=== PATIENT | female | born 1985 | race Caucasian/White ===

== ENCOUNTER 2018-11-24 12:00 | Outpatient (RCR) | payer OTHER, SELFPAY ==
--- NOTE | 2018-11-02 14:11 | HP.PTEVAL ---
Patient's Visit Information ABRIL CAM is a 33 year old F referred to Physical Therapy by DOMINIC Mcneal with a diagnosis of HNP. Date of Evaluation: 11/02/18 Physical Therapist: Skinny Saenz, PT, ATC - Visit Plan Frequency: 2x /Week Duration: 3 Weeks Plan: Postural edu, REIL, core stab ex's, and HEP - Subjective Findings: Pt reports she has had intermittent LBP since 2017. Pt reports she has had PT in the past and an MRI which revealed HNP. Pt reports she is mostly just very frustrated because the pain keeps coming back. Pt reports she has seen another surgeon which recommended another MRI, but notes she has to have PT again before she can have it done. Pt reports her pain is located in the center of her LB, and notes when her pain really flares up, she will get pain into her L hip region. Pt reports bending forward, lifting objects, and prolonged sitting all increase her pain. Pt reports rest is the only thing that helps. 2/10 at rest, 6/10 at worst (Pt was ill and coughing a lot) - Pain LBP Pain Intensity (Out of 10): 2 Pain Intensity Range: 6 - Objective Neuro: B LE sensation is WNL to light touch. B patellar reflex= 3/3. MMT: B LE are 5/5 throughout. L/S ROM: Pt is moderately limited with flex and ext. Repeated movements: REIL 10x2 decreased LBP - Goals Goal 1:: Decrease LBP x 50% to aid with sleep Goal Time Frame: 2-4 Weeks Goal 2:: Increase L/S ROM x 1 grade to aid with IADL's Goal Time Frame: 2-4 Weeks Goal 3:: Decrease the frequency and intensity of L LE radiculopathy x 50% to aid with ambulation Goal Time Frame: 2-4 Weeks Goal 4:: I with HEP Goal Time Frame: 2-4 Weeks - Rehabilitation Potential Physical Therapy Diagnosis: Pt has LBP, limited L/S ROM, and L LE radiculopathy secondary to HNP Rehabilitation Potential: Good - Anticipated Interventions Patient/Client Instruction: Educate patient on: Condition, Plan of Care For the Purpose of:: To improve self management Therapeutic Exercise to Include: Strength training, Endurance training, Body mechanics, Postural training, Dynamic Lumbar Stabilization, Griselda Exercises For the Purpose of:: To decrease pain, To increase ROM, To improve muscle performance and motor function Thank you for the opportunity to evaluate your patient. For Medicare and Medicare HMO plans, please review the plan of care and approve it. It will need to be FAXED BACK to us at [phone] for Medicare purposes. For Medicare only, by signing this I certify the plan of care. Please let me know if there are questions or concerns regarding this plan of care. Physician Signature: Date:
--- NOTE | 2019-03-23 12:08 | HP.PT.NRP ---
HP - Discharge Summary (1) - Patient Information ABRIL CAM was seen in my office for initial evaluation on 11/02/18. The following Plan of Care was established for this patient: Initial Frequency: 2x /Week Initial Duration: 3 Weeks - Anticipated Interventions Patient/Client Instruction: Educate patient on: Condition, Plan of Care For the Purpose of:: To improve self management Therapeutic Exercise to Include: Strength training, Endurance training, Body mechanics, Postural training, Dynamic Lumbar Stabilization, Griselda Exercises For the Purpose of:: To decrease pain, To increase ROM, To improve muscle performance and motor function This patient was last seen in our office . Pertinent comments regarding their Physical therapy will appear below: Pt was treated for 6 PT visits for her LBP through the date of 11/24/18. Pt has not returned through todays date and is discontinued at this time. At this point I will be discontinuing this patient from physical therapy. I would be happy to see this patient again in the future if found appropriate by the physician. Thank you! Skinny Saenz, PT, ATC
== END 2018-11-24 19:00 | disposition home or self-care (01) ==
LOC: PT 12:00
PROVIDERS: Family Provider Nurse Practitioner; PCP Nurse Practitioner; Referring Provider Nurse Practitioner; Visit Provider Nurse Practitioner
DX: M51.26 Other intervertebral disc displacement, lumbar region (principal)
CPT/HCPCS: 97110; 97161

== ENCOUNTER → 2018-12-09 13:15 | Outpatient (CLI) | payer OTHER, SELFPAY ==
--- NOTE | 2018-12-09 13:45 | MRI_ITS ---
STUDY: MRI LUMBAR SPINE WITHOUT CONTRAST REASON FOR EXAM: Female, 33 years old. The low back pain for 3 years, herniated disc TECHNIQUE: Standardized fat and water weighted pulse sequences were obtained in the sagittal and axial planes. COMPARISON: 05/18/2017 FINDINGS: T12-L1: Normal endplates. Normal disc height, hydration and morphology. Normal bilateral facet joints. Normal central canal and bilateral lateral recesses. Normal bilateral intervertebral neural foramina. Normal lumbar lordosis. There is no substantial scoliosis. Normal conus medullaris that terminates at the L1-2 level. L1-2: Normal endplates. Normal disc height, hydration and morphology. Normal bilateral facet joints. Normal central canal and bilateral lateral recesses. Normal bilateral intervertebral neural foramina. L2-3: Normal endplates. Normal disc height, hydration and morphology. Normal bilateral facet joints. Normal central canal and bilateral lateral recesses. Normal bilateral intervertebral neural foramina. L3-4: Normal endplates. Normal disc height, hydration and morphology. Normal bilateral facet joints. Normal central canal and bilateral lateral recesses. Normal bilateral intervertebral neural foramina. L4-5: Disc desiccation. Bulging annulus with central annular fissure. No significant compressive sequelae. L5-S1: Disc space narrowing and desiccation with discogenic endplate changes. Mild residual or recurrent central disc protrusion with mild central canal stenosis. Mild bilateral foraminal stenoses. Normal visualized sacral ala. 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 Normal visualized paraspinous soft tissue structures. MRI/Spine Lumbar (Routine) IMPRESSION: Multilevel degenerative disease as described. Mild residual or recurrent disc protrusion at the L5-S1 level with mild central canal stenosis. No evidence of nerve root impingement at this time. Electronically Signed: Refugio Collins MD at 22:03 EDT Tel , Service support ,
== END ==
PROVIDERS: Family Provider Nurse Practitioner; PCP Nurse Practitioner; Referring Provider Nurse Practitioner
DX: M51.26 Other intervertebral disc displacement, lumbar region (principal)
CPT/HCPCS: 72148